=== PATIENT | male | born 1985 | race Caucasian/White ===

== ENCOUNTER 2020-10-29 18:10 | Emergency (ER) | payer BC ==
[~2020-10-29 18:10] MED LIST: BENTYL 10MG CAP10 MG PO; ERYTHROMYCIN O3.5 GM EYELF; ZOFRAN4 MG PO
[2020-10-29 19:06] LABS: HEMOGLOBIN 14.8 gm/dl (14.0-17.5); RED BLOOD COUNT 4.9 M/UL (4.20-5.50); WHITE BLOOD COUNT 7.2 K/UL (4.5-11.0)
[2020-10-29 19:31] LABS: BUN/CREATININE RATIO 7 (0-10)
== END 2020-10-29 22:39 | disposition home or self-care (01) ==
LOC: ER1 18:10
PROVIDERS: Emergency Medicine
DX: R07.9 Chest pain, unspecified (principal); F17.210 Nicotine dependence, cigarettes, uncomplicated
CPT/HCPCS: 71045; 80053; 82550; 82553; 83690; 83874; 84484; 85025; 85379; 93005; 99285

== ENCOUNTER → 2020-12-04 | Outpatient (CLI) | payer BC | LOC: HEART 5 11:30 | DX: R00.1 Bradycardia, unspecified (principal) ==

== ENCOUNTER 2020-12-06 19:56 | Emergency (ER) | payer BC ==
[2020-12-06 20:33] LABS: HEMOGLOBIN 15.7 gm/dl (14.0-17.5); RED BLOOD COUNT 5.11 M/UL (4.20-5.50); WHITE BLOOD COUNT 8.8 K/UL (4.5-11.0)
[2020-12-06 21:01] LABS: BUN/CREATININE RATIO 9 (0-10)
== END 2020-12-06 23:10 | disposition home or self-care (01) ==
LOC: ER1 19:56
PROVIDERS: Physician Assistant Medical
DX: R07.9 Chest pain, unspecified (principal); F17.210 Nicotine dependence, cigarettes, uncomplicated
CPT/HCPCS: 71045; 80053; 82550; 82553; 83735; 83874; 84439; 84443; 84484; 85025; 85379; 93005; 99285

== ENCOUNTER → 2021-01-24 | Outpatient (CLI) | payer BC | LOC: RAD 18:37 | DX: M54.12 Radiculopathy, cervical region (principal); M25.512 Pain in left shoulder | CPT/HCPCS: 72050; 73030 ==

== ENCOUNTER 2022-02-08 12:55 | Emergency (ER) | payer MEDICAID ==
[~2022-02-08 12:55] MED LIST changes: +BACTRIM DS TAB1 EACH PO
[2022-02-08] MEDS ORDERED: EPIPEN 2-P0.3 MG/0.3 INJ (14:30)
== END 2022-02-08 14:42 | disposition home or self-care (01) ==
LOC: ER1 12:55
DX: T63.441A Toxic effect of venom of bees, accidental (unintentional), initial encounter (principal)
CPT/HCPCS: 96374; 96375; 99282; J1200; J2930